=== PATIENT | female | born 1990 | race Caucasian/White ===

== ENCOUNTER 2022-05-12 17:53 | Emergency (ER) | payer MEDICAID, SELFPAY ==
[2022-05-12 17:54] VITALS: BP 115/98; PULSE 103; RESP 15; TEMP 36.7; O2SAT 99; BMI 36.5
[2022-05-12 17:56] VITALS: BP 115/98; PULSE 103; RESP 15; TEMP 36.7; O2SAT 99
--- NOTE | 2022-05-12 18:08 | ED.VIS.FEGU ---
HPI HPI - Female History of Present Illness Chief Complaint: Complaint Informant: patient Narrative Narrative: Patient presents with several days of dysuria urgency and frequency. No fevers chills nausea or vomiting. Nothing makes this better or worse. She has had UTIs before. She thinks it is Bactrim that they normally give her. It works well and does not cause symptoms. No other complaints. She overall feels well. PFSH PFSH Medical History no medical history Home Medications phenazopyridine 100 mg tablet (Pyridium) 100 mg PO TID PRN pain 6 doses #9 tabs 05/12/22 [Rx Last Taken Unknown] sulfamethoxazole 800 mg-trimethoprim 160 mg tablet (Bactrim DS) 1 tab PO BID #20 tabs 05/12/22 [Rx Last Taken Unknown] Allergy/AdvReac Type Severity Reaction Status Date / Time No Known Allergies Allergy Verified 05/12/22 17:56 Social History Smoking Status: Unknown if ever smoked ROS ROS ED Constitutional Constitutional ED: Denies chills, fever(s) or subjective ENT ENT ED: Denies rhinorrhea Cardiovascular Cardiovascular: Denies chest pain Respiratory/Chest Respiratory/Chest: Denies cough or dyspnea Gastrointestinal Gastrointestinal: Denies abdominal pain, constipation, diarrhea, melena, nausea or vomiting Genitourinary Genitourinary ED: Reports dysuria and urinary frequency; Denies hematuria Musculoskeletal Musculoskeletal: Denies arthralgias Integumentary Denies rash Neurologic Neurologic: Denies headache(s) Endocrine Endocrinology: Denies polydipsia Hematologic/Lymphatic Hematologic/Lymphatic: Denies easy bleeding or easy bruising Allergic/Immunologic Allergic/Immunologic ED: Denies urticaria EXAM Physical Exam Const Vital Signs: 05/12/22 17:54 05/12/22 17:56 Temperature 98.1 F 98.1 F Temperature Source Temporal Temporal Pulse Rate 103 H 103 H Respiratory Rate 15 15 Blood Pressure 115/98 H 115/98 H Blood Pressure Mean 103 103 Pulse Ox 99 99 Oxygen Delivery Method Room Air Room Air Positive well nourished and well developed General Appearance ED: well developed and NAD Eyes General Eye ED: Negative for scleral icterus Resp normal respiratory effort GI normal to inspection, nondistended, normoactive bowel sounds, soft to palpation and non-tender Back/Spine no CVA tenderness Extremity normal to inspection Neuro Sensorium / Orientation: alert Psych mental status grossly normal MDM MDM MDM Narrative Medical decision making narrative: Urine was yellow-white and cloudy. Not quite opaque. Urine is consistent with UTI. But she also has a large amount of glucose. She had not mentioned having diabetes. We did check a blood sugar is 322. I go back talk to the patient's she states she did not mention diabetes as an illness because that something that she has always had. She is on Lantus and metformin. She states she normally runs about 350. We discussed diet exercise and medication adjustments. This can be managed through her primary physician. Lab Data Attestation: I reviewed the patient's lab results. Labs: Laboratory Results - last 24 hr 05/12/22 05/12/22 18:30 19:29 Urine Color Yellow Urine Clarity Sl. Cloudy Urine pH 6.0 Ur Specific [place] 1.015 Urine Protein 15 H Urine Glucose (UA) 1000 H Urine Ketones Negative Urine Occult Blood 10 H Urine Nitrite Negative Urine Bilirubin Negative Urine Urobilinogen Normal Ur Leukocyte Esterase 500 H Urine RBC 0 SEEN Urine WBC 25-50 SEEN Ur Squamous Epith Cells 10-25 SEEN Urine Bacteria 1+ Urine Mucus 0 SEEN Urine Test Negative POC Glucose 322 H Discharge Plan Triage Chief Complaint: Complaint ED Provider: Odin Wan Dx/Rx/DC Orders Clinical Impression: UTI (urinary tract infection), Hyperglycemia Instructions: Urinary Tract Infections in Women Prescriptions: New sulfamethoxazole-trimethoprim [Bactrim DS] 800-160 mg tablet 1 tab PO BID Qty: 20 0RF phenazopyridine [Pyridium] 100 mg tablet 100 mg PO TID PRN (Reason: pain) Qty: 9 0RF Primary Care Provider: [place] Doctor,Out of Referrals: [facility] Doctor,Out of [Primary Care Provider] - 3-5 Days if not improving Disposition Disposition: Home, Self Care
[2022-05-12 18:36] LABS: Mucous, Urine 0 SEEN /hpf (<or=2+); Red Blood Cells-Urine 0 SEEN /hpf (0-5)
[2022-05-12 18:39] LABS: Color, Urine Yellow (Yellow); Glucose, Dipstick 1000 mg/dl (Normal); Ketone-Dipstick Negative (Negative); Leukocyte Esterase-Dipstick 500 /ul (Negative); Nitrite-Dipstick Negative (Negative); Occult Blood-Urine 10 /ul (Negative); Protein-Dipstick 15 mg/dl (Negative); Specific Gravity, Urine 1.015 (1.002-1.030); Urine Bilirubin Dipstick Negative (Negative); Urine Clarity Sl. Cloudy (Clear); Urine Urobilinogen Normal (Normal)
[2022-05-12 18:45] LABS: Internal QC Validated? YES +Cl - CLEAR BKGD; Pregnancy, Urine Negative Negative
[2022-05-12 18:52] LABS: Squamous Epithelial Cells - UA 10-25 SEEN /hpf (5-10); White Blood Cells 25-50 SEEN /hpf (0-5)
[2022-05-12 18:53] LABS: Bacteria 1+ /hpf (None Seen)
[2022-05-12 19:50] LABS: Bedside Glucose 322 mg/dL (74-106)
[2022-05-12 20:13] VITALS: RESP 16
[2022-05-12] MEDS: Phenazopyridine 95 MG Tablet 190 MG PO (20:23)
[2022-05-12] MEDS: Smz/Tmp Ds Tablet 1 TABLET PO (20:23)
== END 2022-05-12 20:26 | disposition home or self-care (01) ==
PROVIDERS: Emergency Provider Emergency Medicine; Visit Provider Emergency Medicine
DX: N39.0 Urinary tract infection, site not specified (principal); E11.65 Type 2 diabetes mellitus with hyperglycemia; R30.0 Dysuria; R35.0 Frequency of micturition; R39.15 Urgency of urination; Z79.84 Long term (current) use of oral hypoglycemic drugs
CPT/HCPCS: 81001; 81025; 82962; 99283